=== PATIENT | female | born 1965 | race Caucasian/White ===

== ENCOUNTER → 2017-02-13 | Outpatient (CLI) | payer OTHER ==
[~2017-02-13] MED LIST: CIPRO500 MG PO; EC NAPROSYN500 MG PO; FLAGYL500 MG PO; LEVBID0.375 MG PO; LOMOTIL 0.025 M1 TA1 PO; NORCO 10-325 T1 EACH PO; SYNTHROID0.025 MG PO
== END | disposition home or self-care (01) ==
LOC: MAMMO 12:53
DX: Z12.31 Encounter for screening mammogram for malignant neoplasm of breast (principal)

== ENCOUNTER 2018-02-02 19:01 | Emergency (ER) | payer OTHER ==
[~2018-02-02] VITALS: Ht 162.5 cm; Wt 83.9 kg
[2018-02-02] MEDS ORDERED: PREDNISONE10 MG PO (20:20)
[2018-02-02] MEDS ORDERED: ROBAXIN500 M1 PO (20:20)
== END 2018-02-02 21:40 | disposition home or self-care (01) ==
LOC: ED 19:01
DX: G89.29 Other chronic pain (principal); M54.5 Low back pain; Z90.49 Acquired absence of other specified parts of digestive tract; Z98.890 Other specified postprocedural states; Z90.710 Acquired absence of both cervix and uterus; Z88.1 Allergy status to other antibiotic agents

== ENCOUNTER 2018-07-01 17:59 | Emergency (ER) | payer OTHER ==
[~2018-07-01] VITALS: Ht 162.5 cm; Wt 81.6 kg
[~2018-07-01 17:59] MED LIST changes: +PREDNISONE10 MG PO; +ROBAXIN500 M1 PO
[2018-07-01] MEDS ORDERED: HYDROXYCHLOROQ200 M1 PO (18:10)
[2018-07-01] MEDS ORDERED: TRAZODONE50 MG PO (18:11)
[2018-07-01] MEDS ORDERED: ROBAXIN500 M1 PO (20:01)
[2018-07-01] MEDS ORDERED: IBUPROFEN600 MG PO (20:01)
== END 2018-07-01 20:06 | disposition home or self-care (01) ==
LOC: ED 17:59
DX: S39.011A Strain of muscle, fascia and tendon of abdomen, initial encounter (principal); M54.5 Low back pain; G89.29 Other chronic pain; Z88.1 Allergy status to other antibiotic agents; Z79.899 Other long term (current) drug therapy; Z90.710 Acquired absence of both cervix and uterus; Z90.49 Acquired absence of other specified parts of digestive tract; X58.XXXA Exposure to other specified factors, initial encounter; Y93.89 Activity, other specified; Y92.098 Other place in other non-institutional residence as the place of occurrence of the external cause; Y99.8 Other external cause status